=== PATIENT | male | born 1955 | race Caucasian/White ===

== ENCOUNTER 2019-05-25 07:36 | Inpatient (IN) | payer BC ==
[2019-05-22 12:30] VITALS: Ht 182.9 cm; Wt 84.5 kg
[2019-05-25] VITALS (28 sets, daily range): BP systolic 84–134; BP diastolic 43–87; PULSE 56–88; RESP 13–23
[~2019-05-25] VITALS: Ht 182.9 cm; Wt 84.5 kg
[~2019-05-25 07:36] MED LIST: AMLO5TAB4 PO; BUPIVACAINE 0.5% (SDV) 30 ML, morphine SULFATE (PF) 8 MG, EPINEPHrine 0.3 MG, KETOROLAC... IRR SCH; CEFAZOLIN 2 GM/50 ML (PMX) 50 ML IVPB ONE; CHOL500051 PO; DEXAMETHASONE 1 MG TAB PO ONE; DOXY100T34 PO; GABA300C16 PO; GABAPENTIN 300 MG CAP PO ONE; INSU100I33 SC; INSU200I SQ; LACTATED RINGER'S 1,000 ML IV SCH; METF500T24 PO; SERT50TA PO; SIMV20TA PO; SOD CHLORIDE 0.9% 100 ML, TRANEXAMIC ACID 3,000 MG IRR ONE; TRANEXAMIC ACID 1GM/100ML(PMX) 100 ML IVPB ONE
[2019-05-25] MEDS ORDERED: LIDOCAINE 2% (SDV) 5 ML INJ ONE (10:22)
[2019-05-25] MEDS ORDERED: PROPOFOL 20 ML ONE (10:22)
[2019-05-25] MEDS ORDERED: MIDAZOLAM 1 MG/ML 2 ML INJ ONE (10:22)
[2019-05-25] MEDS ORDERED: morphine SULFATE/PF (10 MG/10 ML) INJ ONE (10:22)
[2019-05-25] MEDS ORDERED: CEFAZOLIN 1 GM INJ ONE (10:37)
[2019-05-25] MEDS ORDERED: TRANEXAMIC ACID 1GM/100ML(PMX) 100 ML ONE (10:40)
[2019-05-25] MEDS ORDERED: ONDANSETRON 4 MG INJ ONE (11:02)
[2019-05-25] MEDS ORDERED: FAMOTIDINE 20 MG INJ ONE (11:02)
[2019-05-25] MEDS ORDERED: THROMBIN 5000 UNIT (RECOTHROM) VIAL ONE (11:17)
[2019-05-25] MEDS ORDERED: CA CHLORIDE 10% 10 ML SYRINGE ONE (11:17)
[2019-05-25] MEDS ORDERED: POLYMYXIN/BACITRACIN 1L IRRIG IRR ONE (11:21)
[2019-05-25] MEDS ORDERED: hydrALAzine 20 MG INJ IV PRN (12:00)
[2019-05-25] MEDS ORDERED: MEPERIDINE 25 MG INJ IV PRN (12:00)
[2019-05-25] MEDS ORDERED: HYDROmorphONE 1 MG/5 ML IV SYRINGE IV PRN ×2 (12:00)
[2019-05-25] MEDS ORDERED: ONDANSETRON 4 MG INJ IV PRN ×2 (12:00→13:00)
[2019-05-25] MEDS ORDERED: NALBUPHINE HCL (10 MG/1 ML) INJ IV PRN (12:00)
[2019-05-25] MEDS ORDERED: DIPHENHYDRAMINE 50 MG INJ IV PRN ×3 (12:00→13:00)
[2019-05-25] MEDS ORDERED: HYDROmorphONE 0.5 MG/0.5 ML SYG IV PRN ×2 (12:00)
[2019-05-25] MEDS ORDERED: PROCHLORPERAZINE 10 MG INJ IV PRN (12:00)
[2019-05-25] MEDS ORDERED: NALOXONE (0.4 MG/ML) INJ IV PRN (12:00)
[2019-05-25] MEDS ORDERED: LABETALOL HCL 20MG INJ IV PRN (12:00)
[2019-05-25] MEDS ORDERED: EPHEDrine 25 MG/5 ML SYG IV PRN (12:00)
[2019-05-25] MEDS ORDERED: FENTAnyl 50 MCG/ML VIAL IV PRN (12:00)
[2019-05-25] MEDS ORDERED: oxyCODONE 5 MG TAB PO PRN ×2 (13:00)
[2019-05-25] MEDS ORDERED: ZOLPIDEM 5 MG TAB PO PRN (13:00)
[2019-05-25] MEDS ORDERED: HYDROmorphONE 1 MG/ML SYG IV PRN (13:00)
[2019-05-25] MEDS ORDERED: MAGNESIUM HYDROXIDE 30ML CUP PO PRN (13:00)
[2019-05-25] MEDS ORDERED: NACL 0.9% 3 ML SYG IV SCH (13:00)
[2019-05-25] MEDS: ACETAMINOPHEN 1000MG/100ML IV 100 ML IVPB SCH ×2 (13:31→20:24)
[2019-05-25] MEDS: LACTATED RINGER'S 1,000 ML IV SCH ×2 (13:32→22:54)
[2019-05-25] MEDS: CEFAZOLIN 1 GM/50 ML (PMX) 50 ML IVPB SCH ×2 (13:32→20:23)
[2019-05-25] MEDS: FENTAnyl 50 MCG/ML VIAL IV PRN ×2 (13:38→14:26)
[2019-05-25] MEDS: HYDROmorphONE 1 MG/5 ML IV SYRINGE IV PRN ×2 (13:38→14:26)
[2019-05-25] MEDS: INSULIN ASPART [NOVOLOG] 3 ML PEN SC SCH ×2 (17:55→20:29)
[2019-05-25] MEDS ORDERED: DEXTROSE 50% 50 ML SYRINGE IV PRN ×2 (18:00)
[2019-05-25] MEDS ORDERED: GLUCOSE GEL 15 GRAM TUBE BUCCAL PRN (18:00)
[2019-05-25] MEDS ORDERED: GLUCAGON 1 MG INJ IM PRN (18:00)
[2019-05-25] MEDS ORDERED: GLUCOSE GEL 15 GRAM TUBE PO PRN ×2 (18:00)
[2019-05-25] MEDS: metFORMIN 500 MG TAB PO SCH (18:25)
[2019-05-25] MEDS: DEXAMETHASONE 2 MG TAB PO SCH (18:26)
[2019-05-25] MEDS: GABAPENTIN 300 MG CAP PO SCH (20:24)
[2019-05-25] MEDS: SENNA/DOCUSATE NA (8.6MG/50MG) TAB PO SCH (20:24)
[2019-05-25] MEDS ORDERED: GABAPENTIN 300 MG CAP PO SCH (21:00)
[2019-05-25] MEDS ORDERED: ATORVASTATIN 10 MG TAB PO SCH (21:00)
[2019-05-26] VITALS: BP 121/64; PULSE 65; RESP 20
[2019-05-26] MEDS: DEXAMETHASONE 2 MG TAB PO SCH ×3 (00:13→12:35)
[2019-05-26] MEDS: oxyCODONE 5 MG TAB PO PRN ×4 (01:18→16:55)
[2019-05-26] MEDS: ACETAMINOPHEN 1000MG/100ML IV 100 ML IVPB SCH (05:00)
[2019-05-26] MEDS: CEFAZOLIN 1 GM/50 ML (PMX) 50 ML IVPB SCH (05:06)
[2019-05-26 07:38] VITALS: BP 115/65; PULSE 74; RESP 19
[2019-05-26] MEDS: LACTATED RINGER'S 1,000 ML IV SCH (08:54)
[2019-05-26] MEDS: SENNA/DOCUSATE NA (8.6MG/50MG) TAB PO SCH (08:57)
[2019-05-26] MEDS: GABAPENTIN 300 MG CAP PO SCH ×2 (08:57→12:35)
[2019-05-26] MEDS: metFORMIN 500 MG TAB PO SCH ×2 (08:58→17:39)
[2019-05-26] MEDS ORDERED: SERTRALINE 50 MG TAB PO SCH (09:00)
[2019-05-26] MEDS ORDERED: AMLODIPINE 5 MG TAB PO SCH (09:00)
[2019-05-26] MEDS ORDERED: ASPIRIN (EC) 325 MG TAB PO SCH (09:00)
[2019-05-26] MEDS ORDERED: INSULIN GLARGINE [LANtus] 3 ML PEN SC SCH ×2 (09:00→09:17)
[2019-05-26] MEDS: INSULIN ASPART [NOVOLOG] 3 ML PEN SC SCH ×3 (09:10→17:38)
[2019-05-26] MEDS ORDERED: INSULIN GLARGINE [LANTus] (100 UNITS/ML) SYG SC SCH (10:00)
[2019-05-26 15:02] VITALS: BP 112/67; PULSE 74; RESP 20
[2019-05-27] MEDS ORDERED: MAGNESIUM HYDROXIDE 30ML CUP PO SCH (21:00)
== END 2019-05-26 18:25 | DRG 470 ==
LOC: REC 07:36 → EDSTATUS 10:31 → MS1 17:40
PROVIDERS: ADMIT Orthopaedic Surgery; ATTEND Orthopaedic Surgery
PROC: 0SRB04A Replacement of Left Hip Joint with Ceramic on Polyethylene Synthetic Substitute, Uncemented, Open Approach (ICD-10-PCS; principal; 2019-05-25 09:30)
DX: S72.002A Fracture of unspecified part of neck of left femur, initial encounter for closed fracture (principal); M16.52 Unilateral post-traumatic osteoarthritis, left hip; E11.40 Type 2 diabetes mellitus with diabetic neuropathy, unspecified; I10 Essential (primary) hypertension; X58.XXXA Exposure to other specified factors, initial encounter
CPT/HCPCS: 72170; 73530; 82962; 85025; 86999; 87086; 88307; 88311; 97110; 97116; 97162; 97530; C1713; C1776; J0131; J0171; J0690; J0735; J1170; J1815; J1885; J2250; J2274; J2405; J3010; J3370; J7120